=== PATIENT | male | born 1955 | race Caucasian/White ===

== ENCOUNTER 2018-04-17 13:18 | Emergency (ER) | payer MEDICAID ==
[~2018-04-17] VITALS: Ht 188 cm; Wt 104.0 kg
[~2018-04-17 13:18] MED LIST: BACL10TA PO; DICL75TA5 PO; DOCU250C86 PO; FENO134C PO; HERBAL PO; LECI12002 PO; LISI-600 PO; OMEG1CAP13 PO; PANT-47 PO; PER5325T PO; SIMV40TA4 PO; VITC500T PO
[2018-04-17] MEDS ORDERED: HYDROmorphone 1 mg/ml syringe IV ONE (14:05)
[2018-04-17] MEDS ORDERED: propofol 10mg/ml 20ml vial IV ONE (14:05)
[2018-04-17] MEDS ORDERED: ondansetron/PF 4mg/2ml inj IV ONE (14:05)
[2018-04-17] MEDS ORDERED: normal saline 1000ml 1,000 ML IV ONE (14:45)
[2018-04-17 15:34] VITALS: BP 125/71
[2018-04-17] MEDS ORDERED: WHEE1EAC12 MC (15:35)
== END 2018-04-17 16:25 | disposition home or self-care (01) ==
LOC: ER 13:18
DX: S82.842A Displaced bimalleolar fracture of left lower leg, initial encounter for closed fracture (principal); I10 Essential (primary) hypertension; G89.29 Other chronic pain; Z79.899 Other long term (current) drug therapy; Z98.890 Other specified postprocedural states; X50.1XXA Overexertion from prolonged static or awkward postures, initial encounter; Y93.89 Activity, other specified; Y92.89 Other specified places as the place of occurrence of the external cause; Y99.8 Other external cause status
CPT/HCPCS: 27810; 73560; 73600; 73610; 93005; 96374; 96375; 99152; 99285; J1170; J2405; J2704

== ENCOUNTER 2018-12-23 21:30 | Inpatient (IN) | payer MEDICAID ==
[~2018-12-23] VITALS: Ht 188 cm; Wt 108.0 kg
[~2018-12-23 21:30] MED LIST changes: +WHEE1EAC12 MC
[2018-12-23 21:57] LABS: BASOPHILS # (AUTO) 0.1 X10'3 (0-0.2); EOSINOPHILS # (AUTO) 0.2 X10'3 (0-0.9); EOSINOPHILS % (AUTO) 2.3 % (0-6); HEMATOCRIT 39.8 % (42.0-52.0); HEMOGLOBIN 13.8 g/dl (14.0-17.9); LYMPHOCYTES # (AUTO) 3.7 X10'3 (1.1-4.8); LYMPHOCYTES % (AUTO) 41.8 % (21-51); MEAN CORPUSCULAR HEMOGLOBIN 31.8 PG (27.0-31.0); MEAN CORPUSCULAR HGB CONC 34.7 g/dL (33.0-36.5); MEAN CORPUSCULAR VOLUME 91.7 FL (78-98); MEAN PLATELET VOLUME 8.3 FL (7.4-10.4); MONOCYTES # (AUTO) 0.7 X10'3 (0-0.9); MONOCYTES % (AUTO) 7.8 % (2-12); NEUTROPHILS # (AUTO) 4.2 X10'3 (1.8-7.7); NEUTROPHILS % (AUTO) 47.1 % (42-75); PLATELET COUNT 231 X10'3 (140-440); RED BLOOD COUNT 4.34 X10'6 (4.70-6.10); RED CELL DISTRIBUTION WIDTH 14.2 % (11.5-14.5); WHITE BLOOD COUNT 8.9 X10'3 (4.5-11.0)
[2018-12-23 22:13] LABS: PARTIAL THROMBOPLASTIN TIME 29 SECONDS (22-32)
[2018-12-23 22:16] LABS: ALANINE AMINOTRANSFERASE 37 U/L (12-78); ALBUMIN 3.7 G/DL (3.4-5.0); ALKALINE PHOSPHATASE 49 IU/L (46-116); ANION GAP 10 (8-16); ASPARTATE AMINO TRANSFERASE 26 U/L (10-37); BILIRUBIN,TOTAL 0.5 MG/DL (0.1-1.0); BLOOD UREA NITROGEN 23 MG/DL (7-18); BUN/CREATININE RATIO 14.9 (5.4-32.0); CALCIUM 8.9 MG/DL (8.5-10.1); CHLORIDE 101 MMOL/L (99-107); CREATININE 1.54 MG/DL (0.60-1.10); GLUCOSE 113 MG/DL (70-104); POTASSIUM 3.2 MMOL/L (3.5-5.1); SODIUM 138 MMOL/L (135-145); TOTAL CARBON DIOXIDE 27.2 MMOL/L (24-32); TOTAL PROTEIN 7.3 G/DL (6.4-8.2); eGFR 46 ML/MIN
[2018-12-23] MEDS ORDERED: aspirin 81mg tab.chew PO ONE (22:25)
[2018-12-23] MEDS ORDERED: morphine 4 MG/ML inj SYRINge IV ONE (22:45)
[2018-12-23] MEDS ORDERED: ondansetron/PF 4mg/2ml inj IV ONE (22:45)
[2018-12-23] MEDS ORDERED: ondansetron/PF 4mg/2ml inj IV PRN (23:10)
[2018-12-23] MEDS ORDERED: acetaminophen 325mg tablet PO PRN (23:10)
[2018-12-23] MEDS ORDERED: potassium CL 10mEq/100ml bag 100 ML IV PRN ×2 (23:10)
[2018-12-23] MEDS ORDERED: ipratropium/albuterol 3ml nebule NEB PRN (23:10)
[2018-12-23] MEDS ORDERED: magnesium 4gm in 100ml NS 100 ML IV PRN (23:10)
[2018-12-23] MEDS ORDERED: potassium Cl 20 mEq SR tablet PO PRN (23:10)
[2018-12-23] MEDS ORDERED: magnesium 2GM in 50ml NS 50 ML IV PRN (23:10)
[2018-12-23] MEDS ORDERED: magnesium Cl slow-release 64mg tablet PO PRN (23:10)
[2018-12-23] MEDS ORDERED: DICL75TA28 PO (23:22)
[2018-12-23] MEDS ORDERED: LISI30TA4 PO (23:22)
[2018-12-23] MEDS ORDERED: PANT40TA4 PO (23:22)
[2018-12-23] MEDS ORDERED: AMIT25TA9 PO (23:22)
[2018-12-23] MEDS ORDERED: GABA-534 PO (23:22)
[2018-12-23] MEDS ORDERED: HYDR25TA4 PO (23:22)
[2018-12-23] MEDS ORDERED: BACL10TA2 PO (23:22)
[2018-12-23] MEDS ORDERED: MECL-111 PO (23:22)
[2018-12-24] VITALS (7 sets, daily range): BP systolic 94–138; BP diastolic 56–86
--- NOTE | 2018-12-24 | NUR ---
I have received report from Laura in ER and had the opportunity to ask questions based on her report. Patient came in for progressive SOB last two weeks, falls, fractureof right tibia.
[2018-12-24] MEDS ORDERED: docusate sod 250mg capsule PO PRN (00:05)
--- NOTE | 2018-12-24 00:10 | NUR ---
Patient arrived to the [facility]E unit, he is alert and oriented x4. He has an tony bandage wrapped from his groin to his foot on the right leg. Patient has his girlfriend with him at the bedside. Vitals are taken at this time and found to be stable. Will pass on information to Brina chi RN who will be taking on care of this patient.
--- NOTE | 2018-12-24 00:10 | NUR ---
received report from Shara OLIVEROS, patient alert and oriented in stable condition, assessment completed and assumed care
[2018-12-24] MEDS ORDERED: meclizine 12.5mg tablet PO PRN (00:50)
[2018-12-24 01:29] LABS: ALBUMIN 3.4 G/DL (3.4-5.0); ANION GAP 10 (8-16); BLOOD UREA NITROGEN 22 MG/DL (7-18); CALCIUM 8.4 MG/DL (8.5-10.1); CHLORIDE 102 MMOL/L (99-107); CHOL/HDL RATIO 6.2 (0.00-4.99); CHOLESTEROL 142 MG/DL (0-200); CREATININE 1.47 MG/DL (0.60-1.10); GLUCOSE 139 MG/DL (70-104); HDL CHOLESTEROL 23 MG/DL (35-60); LDL CHOLESTEROL 86 MG/DL (50-100); MAGNESIUM 1.5 MG/DL (1.5-2.4); SODIUM 139 MMOL/L (135-145); TOTAL CARBON DIOXIDE 26.9 MMOL/L (24-32); TRIGLYCERIDES 310 MG/DL (20-135); eGFR 49 ML/MIN
[2018-12-24 02:07] LABS: POTASSIUM 2.8 MMOL/L (3.5-5.1)
[2018-12-24] MEDS: potassium Cl 20 mEq SR tablet PO PRN ×2 (02:07→07:45)
[2018-12-24 04:19] LABS: BASOPHILS % (AUTO) 0.5 % (0-1); EOSINOPHILS # (AUTO) 0.3 X10'3 (0-0.9); EOSINOPHILS % (AUTO) 3.6 % (0-6); HEMATOCRIT 37.8 % (42.0-52.0); LYMPHOCYTES # (AUTO) 2.6 X10'3 (1.1-4.8); LYMPHOCYTES % (AUTO) 37.2 % (21-51); MEAN CORPUSCULAR HEMOGLOBIN 31.9 PG (27.0-31.0); MEAN CORPUSCULAR HGB CONC 34.3 g/dL (33.0-36.5); MEAN CORPUSCULAR VOLUME 92.8 FL (78-98); MEAN PLATELET VOLUME 8.2 FL (7.4-10.4); MONOCYTES # (AUTO) 0.7 X10'3 (0-0.9); MONOCYTES % (AUTO) 9.5 % (2-12); NEUTROPHILS # (AUTO) 3.5 X10'3 (1.8-7.7); NEUTROPHILS % (AUTO) 49.2 % (42-75); PLATELET COUNT 200 X10'3 (140-440); RED BLOOD COUNT 4.07 X10'6 (4.70-6.10); RED CELL DISTRIBUTION WIDTH 14.1 % (11.5-14.5)
--- NOTE | 2018-12-24 05:30 | NUR ---
orienteer documentation: I have reviewed and agree with all interventions, assessments performed and documented by ARLIN Gonsalves. Orienteer Medication Administration: For this medication-pass time frame, all medication were reviewed, dispensed, administered and documented per hospital policy by ARLIN Mora.
--- NOTE | 2018-12-24 06:37 | NUR ---
Patient in room MED 313. I have received report from Shara and had the opportunity to ask questions and assume patient care.
[2018-12-24] MEDS: gabapentin 400mg capsule PO SCH ×2 (07:43→20:56)
[2018-12-24] MEDS: fenofibrate 145mg tablet PO SCH (07:43)
[2018-12-24] MEDS: atorvastatin 20mg tablet PO SCH (07:44)
[2018-12-24] MEDS: pantoprazole 40mg Tablet.DR PO SCH (07:44)
[2018-12-24] MEDS: baclofen 10mg tablet PO SCH (07:44)
[2018-12-24] MEDS ORDERED: docusate sod 100mg capsule PO SCH (08:00)
[2018-12-24] MEDS: K and/or MAG REPLACEMENT MC SCH (08:00)
--- NOTE | 2018-12-24 09:04 | NUR ---
PAGER ID: [phone] MESSAGE: [phone]- Velasquez Nickerson is having c/o pain in R broken tibia. can we restart home pain medication for him? Kaylyn [id number]
[2018-12-24] MEDS ORDERED: metoprolol tartrate 1mg/ml inj IV PRN (09:10)
[2018-12-24] MEDS ORDERED: aminophylline 250mg/10ml inj. IV PRN (09:10)
[2018-12-24] MEDS ORDERED: regadenoson 0.4mg/5ml syringe IV ONE (09:10)
[2018-12-24] MEDS ORDERED: HYDROcodone/acetaminophen 10/325mg tab PO PRN (09:10)
[2018-12-24] MEDS ORDERED: nitroGLYCERIN 0.4mg SUBLingual tab SL PRN (09:10)
[2018-12-24 09:18] LABS: ALBUMIN 3.5 G/DL (3.4-5.0); ANION GAP 7 (8-16); BLOOD UREA NITROGEN 18 MG/DL (7-18); BUN/CREATININE RATIO 13.1 (5.4-32.0); CALCIUM 8.7 MG/DL (8.5-10.1); CHLORIDE 104 MMOL/L (99-107); CREATININE 1.37 MG/DL (0.60-1.10); GLUCOSE 170 MG/DL (70-104); SODIUM 141 MMOL/L (135-145); TOTAL CARBON DIOXIDE 30.4 MMOL/L (24-32); eGFR 53 ML/MIN
[2018-12-24] MEDS ORDERED: OXYC-145 PO (13:09)
[2018-12-24] MEDS ORDERED: oxyCODONE/APAP 5-325mg tablet PO PRN (13:25)
--- NOTE | 2018-12-24 16:37 | NUR ---
Page to Vascular. 313-Liya. Pt. is available for Carotids. Thank You.
[2018-12-24] MEDS ORDERED: iohexol 300mg/ml 100ml inj. ONE (17:17)
[2018-12-24] MEDS: oxyCODONE/APAP 5-325mg tablet PO PRN (20:59)
[2018-12-24] MEDS ORDERED: amitriptyline 25mg tablet PO SCH (21:00)
[2018-12-24] MEDS ORDERED: lisinopril 10 MG tablet PO SCH (21:00)
[2018-12-25] VITALS (12 sets, daily range): BP systolic 82–126; BP diastolic 53–90
--- NOTE | 2018-12-25 01:20 | NUR ---
Patient unhooked his IV fluids and pushed the IV pole outside the room. I went in to explain why the patient needs to have the fluids and he did allow me to reconnect the IV. The patient stated that he will be leaving at 0900 whether he has the stress test or not. He states that he will not spend any more time at the hospital and that he believes that it is a waste of his time. I encouraged the patient to be compliant, to complete the testing.
[2018-12-25 05:40] LABS: ALBUMIN 3.3 G/DL (3.4-5.0); ANION GAP 6 (8-16); BLOOD UREA NITROGEN 20 MG/DL (7-18); BUN/CREATININE RATIO 17.2 (5.4-32.0); CALCIUM 8.7 MG/DL (8.5-10.1); CHLORIDE 107 MMOL/L (99-107); CREATININE 1.16 MG/DL (0.60-1.10); GLUCOSE 105 MG/DL (70-104); MAGNESIUM 1.5 MG/DL (1.5-2.4); POTASSIUM 3.7 MMOL/L (3.5-5.1); SODIUM 143 MMOL/L (135-145); TOTAL CARBON DIOXIDE 29.6 MMOL/L (24-32); eGFR 64 ML/MIN
[2018-12-25 05:44] LABS: BASOPHILS % (AUTO) 0.5 % (0-1); EOSINOPHILS # (AUTO) 0.2 X10'3 (0-0.9); EOSINOPHILS % (AUTO) 2.9 % (0-6); HEMATOCRIT 37.5 % (42.0-52.0); HEMOGLOBIN 13.1 g/dl (14.0-17.9); LYMPHOCYTES # (AUTO) 2.9 X10'3 (1.1-4.8); LYMPHOCYTES % (AUTO) 38.8 % (21-51); MEAN CORPUSCULAR HEMOGLOBIN 32.2 PG (27.0-31.0); MEAN CORPUSCULAR HGB CONC 34.8 g/dL (33.0-36.5); MEAN CORPUSCULAR VOLUME 92.4 FL (78-98); MEAN PLATELET VOLUME 8.6 FL (7.4-10.4); MONOCYTES # (AUTO) 0.6 X10'3 (0-0.9); MONOCYTES % (AUTO) 8.1 % (2-12); NEUTROPHILS # (AUTO) 3.7 X10'3 (1.8-7.7); NEUTROPHILS % (AUTO) 49.7 % (42-75); PLATELET COUNT 205 X10'3 (140-440); RED BLOOD COUNT 4.06 X10'6 (4.70-6.10); RED CELL DISTRIBUTION WIDTH 14.1 % (11.5-14.5); WHITE BLOOD COUNT 7.4 X10'3 (4.5-11.0)
--- NOTE | 2018-12-25 06:33 | NUR ---
Problems reprioritized. Patient report given, questions answered & plan of care reviewed with ARLIN Haro.
[2018-12-25] MEDS: normal saline 1000ml 1,000 ML IV SCH ×2 (07:20→16:15)
[2018-12-25] MEDS: baclofen 10mg tablet PO SCH (07:26)
[2018-12-25] MEDS: fenofibrate 145mg tablet PO SCH (07:26)
[2018-12-25] MEDS: atorvastatin 20mg tablet PO SCH (07:26)
[2018-12-25] MEDS: pantoprazole 40mg Tablet.DR PO SCH (07:27)
[2018-12-25] MEDS: gabapentin 400mg capsule PO SCH (07:27)
[2018-12-25] MEDS: oxyCODONE/APAP 5-325mg tablet PO PRN ×2 (07:28→12:22)
[2018-12-25] MEDS: K and/or MAG REPLACEMENT MC SCH (08:00)
[2018-12-25] MEDS ORDERED: aminophylline inj. 10 ML IV ONE (09:57)
--- NOTE | 2018-12-25 11:06 | NUR ---
Page to Vascular. [phone]-Cecille. Pt. back in room and ready for Carotids. Thank You.
[2018-12-25] MEDS ORDERED: OXYC-145 PO (11:43)
[2018-12-25] MEDS ORDERED: BACL10TA2 PO (11:43)
== END 2018-12-25 16:30 | disposition home or self-care (01) | DRG 190 ==
LOC: ER 21:30 → EDBEDREQ 23:57 → MED 3N 12-24 00:01 → CMPBEDREQ 12-24 15:16
PROVIDERS: ADMIT Internal Medicine; ATTEND Internal Medicine
PROC: 2W3QX1Z Immobilization of Right Lower Leg using Splint (ICD-10-PCS; 2018-12-23)
PROC: BW281ZZ Computerized Tomography (CT Scan) of Head using Low Osmolar Contrast (ICD-10-PCS; principal; 2018-12-24)
PROC: 4A02XM4 Measurement of Cardiac Total Activity, External Approach (ICD-10-PCS; 2018-12-25)
PROC: 3E033HZ Introduction of Radioactive Substance into Peripheral Vein, Percutaneous Approach (ICD-10-PCS; 2018-12-25)
DX: I21.4 Non-ST elevation (NSTEMI) myocardial infarction (principal); N17.9 Acute kidney failure, unspecified; S82.831A Other fracture of upper and lower end of right fibula, initial encounter for closed fracture; E78.5 Hyperlipidemia, unspecified; F17.210 Nicotine dependence, cigarettes, uncomplicated; I12.9 Hypertensive chronic kidney disease with stage 1 through stage 4 chronic kidney disease, or unspecified chronic kidney disease; N18.9 Chronic kidney disease, unspecified; K21.9 Gastro-esophageal reflux disease without esophagitis; R29.6 Repeated falls; R55 Syncope and collapse; F32.9 Major depressive disorder, single episode, unspecified; E87.6 Hypokalemia; W18.39XA Other fall on same level, initial encounter; G89.29 Other chronic pain; M54.9 Dorsalgia, unspecified; I25.2 Old myocardial infarction; Y93.89 Activity, other specified; Y92.89 Other specified places as the place of occurrence of the external cause; Y99.8 Other external cause status; Z79.899 Other long term (current) drug therapy
CPT/HCPCS: 36415; 70450; 70470; 71045; 73140; 73590; 78452; 80048; 80053; 80061; 83036; 83735; 83880; 84484; 85025; 85610; 85730; 87081; 93005; 93017; 93880; 94760; 96374; 96375; 99285; A9500; G0378; J0280; J2270; J2405; J2785; J7030; Q9967